=== PATIENT | male | born 1990 | race Caucasian/White ===

== ENCOUNTER 2021-07-25 20:33 | Emergency (ER) | payer SELFPAY ==
[~2021-07-25] VITALS: Ht 172.7 cm; Wt 90.7 kg
== END 2021-07-25 23:00 | disposition home or self-care (01) ==
LOC: FSED 21:09
DX: G56.22 Lesion of ulnar nerve, left upper limb (principal); F17.210 Nicotine dependence, cigarettes, uncomplicated; Z82.3 Family history of stroke
CPT/HCPCS: 99282

== ENCOUNTER → 2022-06-16 | Outpatient (CLI) | payer OTHER | LOC: RAD 15:32 | PROVIDERS: ATTEND Family Medicine | DX: M54.51 Vertebrogenic low back pain (principal) | CPT/HCPCS: 72110 ==

== ENCOUNTER 2023-11-07 03:32 | Emergency (ER) | payer OTHER ==
[~2023-11-07] VITALS: Ht 172.7 cm; Wt 72.6 kg
[~2023-11-07 03:32] MED LIST: AMOX TR-K CLV1 EAC2 PO; CYCLOBENZAPRINE5 MG PO; MEDROL4 M2 PO
[2023-11-07 03:52] VITALS: TEMP 98.3
[2023-11-07 04:32] LABS: BASOPHILS # (AUTO) 0.1 (0.0-0.1); BASOPHILS % 0.6 % (0.0-1.0); EOSINOPHILS # (AUTO) 0.3 (0.0-0.4); EOSINOPHILS % 2.7 % (0.0-6.0); HEMATOCRIT 44.5 % (38.2-49.6); HEMOGLOBIN 15.1 g/dL (14.0-18.0); LYMPHOCYTES # (AUTO) 3.8 (1.0-3.2); LYMPHOCYTES % 35.1 % (18.0-39.1); MEAN CORPUSCULAR HEMOGLOBIN 32.1 pg (28-32); MEAN CORPUSCULAR HGB CONC 33.9 g/dL (31-35); MEAN CORPUSCULAR VOLUME 94.7 fL (81-99); MONOCYTES # (AUTO) 0.8 (0.2-0.8); NEUTROPHILS # (AUTO) 5.9 (2.1-6.9); NEUTROPHILS % 54.2 % (38.7-80.0); PLATELET COUNT 265 x10e3/uL (140-360); RED CELL DISTRIBUTION WIDTH 12.4 % (11.7-14.4); WHITE BLOOD COUNT 10.81 x10e3/uL (4.8-10.8)
[2023-11-07] MEDS ORDERED: HALOPERIDOL LACTATE 5 MG/ML VIAL IV ONE (04:45)
[2023-11-07] MEDS: KETOROLAC TROMETHAMINE 30 MG/ML VIAL IV STA (04:49)
[2023-11-07 05:02] LABS: INFLUENZAE A&B ANTIGEN (RAPID) NEGATIVE (NEGATIVE); RESPIRATORY SYNC. VIRUS NEGATIVE (NEGATIVE)
[2023-11-07 05:03] LABS: GLUCOSE 114 mg/dL (74-118)
[2023-11-07 05:10] LABS: ALANINE AMINOTRANSFERASE 14 IU/L (0-55); ALBUMIN 4.8 g/dL (3.5-5.0); ALBUMIN/GLOBULIN RATIO 1.5 (0.8-2.0); ALKALINE PHOSPHATASE 69 IU/L (40-150); ANION GAP 12.7 mmol/L (8-16); BILIRUBIN,TOTAL 0.3 mg/dL (0.2-1.2); BLOOD UREA NITROGEN 18 mg/dL (7-26); BUN/CREATININE RATIO 17 (6-25); CALCIUM 9.6 mg/dL (8.4-10.2); CARBON DIOXIDE 29 mmol/L (22-29); CHLORIDE 102 mmol/L (98-107); CREATININE, SERUM 1.06 mg/dL (0.72-1.25); EST GLOMERULAR FILTRATION RATE 94 ML/MIN (>=60); LIPASE 45 U/L (8-78); POTASSIUM 3.7 mmol/L (3.5-5.1); SODIUM 140 mmol/L (136-145); TOTAL PROTEIN 7.9 g/dL (6.5-8.1)
[2023-11-07 05:18] LABS: TROPONIN I < 0.001 ng/mL (0-0.300)
[2023-11-07] MEDS ORDERED: NAPROXEN250 MG PO (05:57)
[2023-11-07] MEDS ORDERED: MUCINEX DM ER1 EACH PO (05:58)
[2023-11-07 06:16] VITALS: PULSE 72; RESP 16
[2023-11-07 06:22] VITALS: BP 120/69; O2SAT 100
== END 2023-11-07 06:20 | disposition home or self-care (01) ==
LOC: ER 03:36
DX: R07.89 Other chest pain (principal); K21.9 Gastro-esophageal reflux disease without esophagitis; F17.210 Nicotine dependence, cigarettes, uncomplicated
CPT/HCPCS: 36415; 71045; 80053; 83690; 84484; 85025; 87400; 87420; 93005; 99284; J1885; U0002

== ENCOUNTER 2024-10-25 16:00 | Emergency (ER) | payer OTHER ==
[~2024-10-25] VITALS: Ht 170.2 cm; Wt 81.6 kg
[~2024-10-25 16:00] MED LIST changes: +MUCINEX DM ER1 EACH PO; +NAPROXEN250 MG PO
[2024-10-25 16:17] VITALS: PULSE 120; RESP 18; TEMP 98.9; O2SAT 100
[2024-10-25] MEDS: KETOROLAC TROMETHAMINE 30 MG/ML VIAL IM STA (16:39)
[2024-10-25] MEDS: HYDROCODONE/APAP 5MG-325MG TAB PO ONE (16:39)
[2024-10-25] MEDS ORDERED: ULTRAM 50MG50 MG PO (17:39)
== END 2024-10-25 18:00 | disposition home or self-care (01) ==
LOC: ER 16:05
DX: S62.390A Other fracture of second metacarpal bone, right hand, initial encounter for closed fracture (principal); Y04.0XXA Assault by unarmed brawl or fight, initial encounter; Y92.89 Other specified places as the place of occurrence of the external cause; K21.9 Gastro-esophageal reflux disease without esophagitis; F17.210 Nicotine dependence, cigarettes, uncomplicated
CPT/HCPCS: 99283; J1885